=== PATIENT | male | born 1955 | race Caucasian/White ===

== ENCOUNTER → 2018-03-21 | Outpatient (CLI) | payer OTHER ==
--- NOTE | ~2018-03-21 | EKG ---
[place] [address] [facility] [employer] [place] [address] ELECTROCARDIOGRAM REPORT Name: ARCELIA NORTON [facility]: [id number] Admission: 03/21/18 Attend Phys: James Pelaez MD Discharge: Date of : 53 Report #: [id number] THIS REPORT FOR: //name// [facility] Test Date: 2018-03-21 Test Time: 13:20:12 Pat Name: ARCELIA NORTON Department: Room: Gender: M [employer] Officer: JESUSITA : 1955 Requested By: James Pelaez Order Number: [id number] MD: Baudilio Barfield Measurements Intervals [place] Rate: 52 P: 8 GA: 154 QRS: 55 QRSD: 90 T: 19 QT: 413 QTc: 384 Interpretive Statements Sinus bradycardia Atrial premature complex Poor R wave progression Baseline wander in lead(s) III No previous ECG available for comparison Electronically Signed On 03-22-2018 7:51:43 CDT by Baudilio Barfield [email or web address] <ELECTRONICALLY SIGNED> By: Baudilio Barfield MD, [facility] 03/22/18 0751 1320 1320 Baudilio Barfield MD, FACC /EPI
== END | disposition home or self-care (01) ==
LOC: LITH 12:55
DX: N20.1 Calculus of ureter (principal); Z87.442 Personal history of urinary calculi; Z90.49 Acquired absence of other specified parts of digestive tract